=== PATIENT | male | born 1975 | race Caucasian/White ===

== ENCOUNTER → 2016-10-01 | Outpatient (CLI) | payer BC | LOC: HYPER 07:05 | DX: I87.2 Venous insufficiency (chronic) (peripheral) (principal); E11.621 Type 2 diabetes mellitus with foot ulcer; L97.522 Non-pressure chronic ulcer of other part of left foot with fat layer exposed; L97.511 Non-pressure chronic ulcer of other part of right foot limited to breakdown of skin; E11.622 Type 2 diabetes mellitus with other skin ulcer; L97.822 Non-pressure chronic ulcer of other part of left lower leg with fat layer exposed; E66.01 Morbid (severe) obesity due to excess calories; I10 Essential (primary) hypertension; Z72.89 Other problems related to lifestyle ==

== ENCOUNTER → 2016-10-08 | Outpatient (CLI) | payer BC | LOC: HYPER 07:01 | DX: I87.311 Chronic venous hypertension (idiopathic) with ulcer of right lower extremity (principal); E11.622 Type 2 diabetes mellitus with other skin ulcer; L97.811 Non-pressure chronic ulcer of other part of right lower leg limited to breakdown of skin; I87.322 Chronic venous hypertension (idiopathic) with inflammation of left lower extremity; L97.822 Non-pressure chronic ulcer of other part of left lower leg with fat layer exposed; E11.621 Type 2 diabetes mellitus with foot ulcer; L97.522 Non-pressure chronic ulcer of other part of left foot with fat layer exposed; L97.511 Non-pressure chronic ulcer of other part of right foot limited to breakdown of skin; E66.01 Morbid (severe) obesity due to excess calories; Z72.89 Other problems related to lifestyle ==

== ENCOUNTER → 2016-10-17 | Outpatient (CLI) | payer BC | LOC: HYPER 10-16 14:36 | DX: I87.311 Chronic venous hypertension (idiopathic) with ulcer of right lower extremity (principal); E11.622 Type 2 diabetes mellitus with other skin ulcer; L97.811 Non-pressure chronic ulcer of other part of right lower leg limited to breakdown of skin; I87.322 Chronic venous hypertension (idiopathic) with inflammation of left lower extremity; L97.822 Non-pressure chronic ulcer of other part of left lower leg with fat layer exposed; E11.621 Type 2 diabetes mellitus with foot ulcer; L97.511 Non-pressure chronic ulcer of other part of right foot limited to breakdown of skin; L97.522 Non-pressure chronic ulcer of other part of left foot with fat layer exposed; E66.01 Morbid (severe) obesity due to excess calories; Z72.89 Other problems related to lifestyle ==